=== PATIENT | female | born 1995 | race Two or more races ===

== ENCOUNTER → 2023-10-17 14:06 | Outpatient (CLI) | payer OTHER | END | disposition home or self-care (01) | LOC: PRENATAL 14:06 | PROVIDERS: ATTEND Obstetrics & Gynecology Maternal & Fetal Medicine | DX: O36.80X0 Pregnancy with inconclusive fetal viability, not applicable or unspecified (principal); Z36.82 Encounter for antenatal screening for nuchal translucency; Z36.9 Encounter for antenatal screening, unspecified; Z3A.13 13 weeks gestation of pregnancy ==

== ENCOUNTER 2023-12-05 08:05 | Outpatient (CLI) | payer OTHER | END 2023-12-05 08:08 | disposition home or self-care (01) | LOC: PRENATAL 08:05 | PROVIDERS: ATTEND Obstetrics & Gynecology Maternal & Fetal Medicine | DX: O35.9XX0 Maternal care for (suspected) fetal abnormality and damage, unspecified, not applicable or unspecified (principal); O35.3XX0 Maternal care for (suspected) damage to fetus from viral disease in mother, not applicable or unspecified; O44.00 Complete placenta previa NOS or without hemorrhage, unspecified trimester; Z3A.20 20 weeks gestation of pregnancy ==

== ENCOUNTER 2024-04-02 10:33 | Outpatient (CLI) | payer OTHER ==
[~2024-04-02 10:33] MED LIST: ALBUTEROL2.5 MG/3 M IH; FOLIC ACID20 MG; PRENATAL TABLE1 EAC1
== END 2024-04-02 10:34 | disposition home or self-care (01) ==
LOC: PRENATAL 10:33
PROVIDERS: ATTEND Obstetrics & Gynecology Maternal & Fetal Medicine
DX: O26.843 Uterine size-date discrepancy, third trimester (principal); O36.8130 Decreased fetal movements, third trimester, not applicable or unspecified; O36.5930 Maternal care for other known or suspected poor fetal growth, third trimester, not applicable or unspecified; Z3A.37 37 weeks gestation of pregnancy

== ENCOUNTER 2024-04-12 13:15 | Inpatient (IN) | payer OTHER ==
[~2024-04-12] VITALS: Ht 157.5 cm; Wt 83.5 kg
[2024-04-12 14:51] LABS: INR < 0.93; PARTIAL THROMBOPLASTIN TIME 26.7 SECONDS (22.0-34.0); PROTHROMBIN TIME 9.8 SECONDS (9.0-11.5)
[2024-04-14] MEDS ORDERED: OXYTOCIN 500 ML IV SCH (08:30)
[2024-04-14] MEDS ORDERED: OXYTOCIN 20 UNITS/500ML RL PIGGYBAG IV ONE (08:59)
[2024-04-14] MEDS ORDERED: ERYTHROMYCIN BASE 1 GM TUBE OP ONE (10:52)
[2024-04-14] MEDS ORDERED: OXYTOCIN 20 UNITS/1000ML RL PIGGYBAG IV ONE (10:52)
[2024-04-14] MEDS ORDERED: PROMETHAZINE HCL 25 MG/ML AMPUL ONE (10:52)
[2024-04-14] MEDS ORDERED: CHLORHEXIDINE GLUCONATE 120 ML BOTTLE TOP ONE (10:53)
[2024-04-14] MEDS ORDERED: PROMETHAZINE HCL 25 MG/ML AMPUL IV PRN (11:00)
[2024-04-14] MEDS ORDERED: MEPERIDINE HCL/PF 25 MG/ML VIAL IV PRN (11:00)
[2024-04-14] MEDS ORDERED: AMPICILLIN SODIUM 1,000 MG VIAL IV SCH (12:30)
[2024-04-14] MEDS ORDERED: CHLORHEXIDINE GLUCONATE 120 ML BOTTLE TOP SCH (12:30)
[2024-04-14] MEDS ORDERED: ERYTHROMYCIN BASE 1 GM TUBE OP SCH (12:30)
[2024-04-14] MEDS ORDERED: ACETAMINOPHEN 500 MG GEL..CAP PO PRN (12:45)
[2024-04-14] MEDS ORDERED: OXYTOCIN 1,000 ML IV ONE (12:45)
[2024-04-14 13:38] LABS: ABG pCO2 38.8 mmHg (35-45); BICARBONATE 21.9 mmol/l (23-25); Tco2 23.1 mmol/l
[2024-04-14 14:11] LABS: ABG PO2 23.5 mmHg (80-100); o2 21 %
[2024-04-14 20:34] LABS: HEMATOCRIT 37.1 % (36.0-45.00); MEAN CELL VOLUME 73.9 fL (80.00-100.00); MEAN CORPUSCULAR HEMOGLOBIN 23.9 pg (27.00-32.0); MEAN CORPUSCULAR HGB CONC 32.3 g/dl (32.0-36.0); PLATELET COUNT 193 K/uL (150-450); RED BLOOD COUNT 5.02 M/uL (4.00-6.00); RED CELL DISTRIBUTION WIDTH 13.8 % (11.5-14.5)
[2024-04-15] MEDS ORDERED: PNV,CALCIUM 72/IRON/FOLIC ACID 1 TAB TABLET PO SCH (09:00)
== END 2024-04-16 12:26 | disposition home or self-care (01) | DRG 807 ==
LOC: OB/GYN 04-14 07:50 → LDR 04-14 07:50 → OB/GYN 04-14 12:53
PROVIDERS: ADMIT General Practice; ATTEND General Practice
PROC: 10E0XZZ Delivery of Products of Conception, External Approach (ICD-10-PCS; principal; 2024-04-14)
PROC: 0UQMXZZ Repair Vulva, External Approach (ICD-10-PCS; 2024-04-14)
PROC: 4A1HXCZ Monitoring of Products of Conception, Cardiac Rate, External Approach (ICD-10-PCS; 2024-04-14)
DX: O71.82 Other specified trauma to perineum and vulva (principal); O99.824 Streptococcus B carrier state complicating childbirth; Z37.0 Single live birth; Z3A.38 38 weeks gestation of pregnancy; Z20.822 Contact with and (suspected) exposure to COVID-19

== ENCOUNTER 2024-04-13 14:55 | Outpatient (CLI) | payer OTHER ==
[2024-04-13] MEDS ORDERED: AMPICILLIN SODIUM 2,000 MG VIAL IV ONE (15:15)
[2024-04-13] MEDS ORDERED: RINGERS SOLUTION,LACTATED 1,000 ML IV SCH (15:15)
[2024-04-13 16:03] LABS: URINE APPEARANCE Clear; URINE BILIRRUBIN Negative (NEGATIVE); URINE BLOOD Large; URINE COLOR Dark Yellow; URINE GLUCOSE Negative (NEGATIVE); URINE LEUKOCYTE Trace; URINE NITRATE Negative; URINE PROTEIN Trace (NEGATIVE)
[2024-04-13 16:04] LABS: HEMATOCRIT 37.1 % (36.0-45.00); HEMOGLOBIN 12.1 g/dL (12.0-15.00); MEAN CELL VOLUME 73.2 fL (80.00-100.00); MEAN CORPUSCULAR HEMOGLOBIN 23.8 pg (27.00-32.0); MEAN CORPUSCULAR HGB CONC 32.5 g/dl (32.0-36.0); PLATELET COUNT 205 K/uL (150-450); RED BLOOD COUNT 5.07 M/uL (4.00-6.00); RED CELL DISTRIBUTION WIDTH 13.9 % (11.5-14.5)
[2024-04-13 16:06] LABS: URINE BACTERIA 616.1 uL (0.0-1933); URINE EPITHELIAL CELLS 29.2 uL (0.0-38.8); URINE RBC 11.6 uL (0.0-20.8); URINE WBC 22.2 uL (0.0-23.2)
[2024-04-13 16:19] LABS: INR < 0.93; PARTIAL THROMBOPLASTIN TIME 28.2 SECONDS (22.0-34.0); PROTHROMBIN TIME 9.8 SECONDS (9.0-11.5)
[2024-04-13 16:24] LABS: ALBUMIN 2.6 gm/dL (3.4-5.0); BILIRUBIN TOTAL 0.38 mg/dL (0.3-1.2); CALCIUM 8.7 mg/dL (8.5-10.1); CREATININE SERUM 0.4 mg/dL (0.55-1.02); GFR 192.94; GLOBULINA 3.7 G/DL (2.4-3.5); POTASSIUM 4.46 mEq/L (3.5-5.1); TOTAL PROTEIN 6.3 gm/dL (6.4-8.2)
[2024-04-13 16:31] LABS: URINE CRYSTALS MODERATE /HPF
[2024-04-13] MEDS ORDERED: AMPICILLIN SODIUM 1,000 MG VIAL IV SCH ×2 (20:00→21:00)
== END 2024-04-15 08:45 | disposition still patient (30) ==
LOC: OBS/DEL 14:55
PROVIDERS: ATTEND General Practice
DX: O26.893 Other specified pregnancy related conditions, third trimester (principal)